=== PATIENT | male | born 1990 | race Caucasian/White ===

== ENCOUNTER 2017-06-03 10:50 | Emergency (ER) | payer OTHER ==
[~2017-06-03] VITALS: Ht 170.2 cm; Wt 71.8 kg
[2017-06-03 10:56] VITALS: TEMP 36.7; Ht 170.2 cm; Wt 71.8 kg
[2017-06-03] MEDS ORDERED: LIDO1CRE TOP (11:36)
[2017-06-03] MEDS ORDERED: ELVI1TAB6 PO (11:36)
--- NOTE | 2017-06-03 11:47 | EMERGENCY ROOM VISIT NOTE ---
History Report prepared by Terence: Osmin Meza Under the Supervision of: Dr. Danial Mcguire M.D. First contact with patient: 11:05 Chief Complaint: ABDOMINAL PAIN Stated Complaint: ABDOMINAL PAIN, RIGHT LOWER QUADRANT, BACK PAIN Nursing Triage Summary: "I'm in a a whole world of hurt". On friday notice had a mass on left testicle. Decided to wait it out a little bit. Friday started havign high fevers and back pain. Right and lower abdoinal pain 0/0 at this time but with pressure pain 10/10. History of Present Illness The patient is a 26 year old white male with a past medical history of a TBI and HIV who presents to the ED with a cc of persistent testicular pain and abdominal pain beginning three days ago worsened with palpation. Positive back pain, fever or 103.1, and testicular mass. Negative urinary pain, vomiting, history of cancer, alcohol use, and tobacco use. He has been very tired recently. Source of History: patient Onset: 3 days ago Position: abdomen, other (testicle) Timing: other (persistent) Modifying Factors (Worsening): other (palpation) Associated Symptoms: + fevers, + back pain, No vomiting Note: Associated symptoms: Testicular mass. Review of Systems See HPI for pertinent positives and negatives. A total of ten systems were reviewed and were otherwise negative. Past Medical & Surgical Medical Problems: (1) HIV (human immunodeficiency virus infection) (2) TBI (traumatic brain injury) Social History Smoking Status: Current Every Day Smoker Marital Status: single Occupation Status: employed Current/Historical Medications Scheduled Qfseahfwurza-Xgqcuicigz-Ilgpdd (Genvoya [phone] mg), 1 TAB PO DAILY Miscellaneous Medications Lidocaine Hcl (Lidocaine), 1 APPLN TOP Allergies Coded Allergies: Zolpidem (Unverified Allergy, Unknown, nosebleeds, 06/03/17) Physical Exam Vital Signs Date Time Temp Pulse Resp B/P (MAP) Pulse Ox O2 Delivery O2 Flow Rate FiO2 06/03/17 15:48 81 19 130/73 98 06/03/17 14:14 98 20 109/77 99 Room Air 06/03/17 12:27 91 06/03/17 12:25 94 16 147/71 100 Room Air 06/03/17 10:56 36.7 101 20 118/59 98 Room Air Physical Exam GENERAL: Awake, alert, well-appearing, NAD HENT: Normocephalic, atraumatic. Poor dentition EYES: Normal conjunctiva. Sclera non-icteric. NECK: Supple. No nuchal rigidity. FROM. RESPIRATORY: CTAB, no rhonchi, wheezing, crackles CARDIAC: RRR, no MRG ABDOMEN: Some suprapubic discomfort. Soft, ND, BS+ : Firm rubbery mass at the base of the left testicle. No scrotal swelling. No penile tenderness. Uncircumcised. MSK: No chest wall TTP, no LE edema NEURO: GCS 15, CN 2-12 intact, moves all 4s on command SKIN: No rash or jaundice noted. Medical Decision & Procedures ER Provider Diagnostic Interpretation: Radiology results as stated below per my review and radiologist interpretation: (TESTICULAR) SCROTUM-CONT HISTORY: Mass L posterior rubbery firm mass COMPARISON: None. FINDINGS: Right testis: Uniform echogenicity. Maximum dimension 5 cm. Normal vascular flow Left testis: Maximum dimension 4.6 cm. Lower pole heterogeneous mass measuring 1.5 x 1.4 cm. Neoplasm must be considered. IMPRESSION: 1. 1.5 cm lower pole left testicular mass. 2. Neoplasm must be excluded. 3. Normal right testis. The above report was generated using voice recognition software. It may contain grammatical, syntax or spelling errors. Electronically signed by: Iglesia Wilde M.D. 06/03/2017 1:08 PM Dictated Date/Time: 06/03/2017 1:05 PM CHEST ONE VIEW PORTABLE HISTORY: Generalized abdominal pain. COMPARISON: None. FINDINGS: The lungs are clear. Cardiac silhouette is normal in size. No pleural effusions. No pneumothorax. Postoperative changes related to the right clavicle. IMPRESSION: No acute process. Electronically signed by: Jose Quiñones M.D. 06/03/2017 12:37 PM Dictated Date/Time: 06/03/2017 12:35 PM ABD/PELVIS IV CONTRAST ONLY CT DOSE: 442.16 mGycm HISTORY: Flank pain ab pain TECHNIQUE: Multiaxial CT images of the abdomen and pelvis were performed following the use of intravenous contrast. A dose lowering technique was utilized adhering to the principles of ALARA. COMPARISON STUDY: None. FINDINGS: The lung bases are clear. The liver, spleen, gallbladder, pancreas, kidneys, and adrenal glands are within normal limits. No bowel wall thickening or obstruction. The pelvic organs are unremarkable. No suspicious lytic or blastic osseous lesions. Several reactive mesenteric nodes. The appendix is identified only in part although there is no significant right lower quadrant inflammatory process. IMPRESSION: No significant abnormality identified within the abdomen or pelvis. Mild mesenteric adenitis. The above report was generated using voice recognition software. It may contain grammatical, syntax or spelling errors. Electronically signed by: Iglesia Wilde M.D. 06/03/2017 2:49 PM Dictated Date/Time: 06/03/2017 2:44 PM Laboratory Results 06/03/17 12:10 Red Blood Count 4.55, Mean Corpuscular Volume 89.9, Mean Corpuscular Hemoglobin 32.5, Mean Corpuscular Hemoglobin Concent 36.2, Mean Platelet Volume 9.0, Neutrophils (%) (Auto) 73.6, Lymphocytes (%) (Auto) 12.1, Monocytes (%) (Auto) 13.1, Eosinophils (%) (Auto) 0.6, Basophils (%) (Auto) 0.3, Neutrophils # (Auto ) 8.24, Lymphocytes # (Auto) 1.36, Monocytes # (Auto) 1.47, Eosinophils # (Auto ) 0.07, Basophils # (Auto) 0.03 06/03/17 12:10 Test 06/03/17 12:10 White Blood Count 11.20 K/uL (4.8-10.8) Red Blood Count 4.55 M/uL (4.7-6.1) Hemoglobin 14.8 g/dL (14.0-18.0) Hematocrit 40.9 % (42-52) Mean Corpuscular Volume 89.9 fL (80-100) Mean Corpuscular Hemoglobin 32.5 pg (25-34) Mean Corpuscular Hemoglobin Concent 36.2 g/dl (32-36) Platelet Count 160 K/uL (130-400) Mean Platelet Volume 9.0 fL (7.4-10.4) Neutrophils (%) (Auto) 73.6 % Lymphocytes (%) (Auto) 12.1 % Monocytes (%) (Auto) 13.1 % Eosinophils (%) (Auto) 0.6 % Basophils (%) (Auto) 0.3 % Neutrophils # (Auto) 8.24 K/uL (1.4-6.5) Lymphocytes # (Auto) 1.36 K/uL (1.2-3.4) Monocytes # (Auto) 1.47 K/uL (0.11-0.59) Eosinophils # (Auto) 0.07 K/uL (0-0.5) Basophils # (Auto) 0.03 K/uL (0-0.2) RDW Standard Deviation 39.3 fL (36.4-46.3) RDW Coefficient of Variation 12.2 % (11.5-14.5) Immature Granulocyte % (Auto) 0.3 % Immature Granulocyte # (Auto) 0.03 K/uL (0.00-0.02) Urine Color DK YELLOW Urine Appearance CLEAR (CLEAR) Urine pH 6.5 (4.5-7.5) Urine Specific [place] 1.036 (1.000-1.030) Urine Protein 1+ (NEG) Urine Glucose (UA) NEG (NEG) Urine Ketones TRACE (NEG) Urine Occult Blood NEG (NEG) Urine Nitrite NEG (NEG) Urine Bilirubin NEG (NEG) Urine Urobilinogen NEG (NEG) Urine Leukocyte Esterase TRACE (NEG) Urine WBC (Auto) 1-5 /hpf (0-5) Urine RBC (Auto) 5-10 /hpf (0-4) Urine Hyaline Casts (Auto) 1-5 /lpf (0-5) Urine Epithelial Cells (Auto) 10-20 /lpf (0-5) Urine Bacteria (Auto) NEG (NEG) Anion Gap 4.0 mmol/L (3-11) Est Creatinine Clear Calc Drug Dose 77.3 ml/min Estimated GFR () 83.7 Estimated GFR (Non- 72.2 BUN/Creatinine Ratio 14.0 (10-20) Calcium Level 9.2 mg/dl (8.5-10.1) Total Bilirubin 0.6 mg/dl (0.2-1) Direct Bilirubin 0.1 mg/dl (0-0.2) Aspartate Amino Transf (AST/SGOT) 14 U/L (15-37) Alanine Aminotransferase (ALT/SGPT) 29 U/L (12-78) Alkaline Phosphatase 84 U/L (45-117) Total Protein 8.1 gm/dl (6.4-8.2) Albumin 3.7 gm/dl (3.4-5.0) Lipase 139 U/L (73-393) Laboratory results reviewed by me Medications Administered Medications (Trade) Dose Ordered Sig/Julio Route Start Time Stop Time Status Last Admin Dose Admin Acetaminophen (Tylenol Tab) 1,000 mg NOW STAT PO 06/03/17 12:05 06/03/17 12:06 DC 06/03/17 12:25 1,000 MG ED Course 1120: The patient was evaluated in room C1. A complete history and physical exam was performed. 1151: I reevaluated the patient, and I updated him on the plan and performed an exam. 1513: I discussed the patient's case with Brandy EVANS - Urology, and she is going to get the patient an appointment tomorrow. 1514: I reevaluated the patient. Discussed results and discharge instructions: he verbalized understanding and agreement. The patient is ready for discharge. Medical Decision Patient was seen and evaluated the bedside. Patient was putting some mild abdominal discomfort as well as a noted testicular mass. Patient states he noticed this yesterday. Patient denies any urinary symptoms. Of note the patient does have a prior history of TBI and HIV. Patient is on antiretrovirals states that his CD4 count is normal and his viral load was undetectable was most recent blood work. Patient's blood work is fairly unremarkable. The patient's urinalysis I do not believe is infected. Patient did have an ultrasound of the scrotum which did show 1.5 cm mass in the left scrotum. Malignancy could not be ruled out. CT of the abdomen pelvis did show some mesenteric adenitis. No other evidence of any other issues within the abdomen or pelvis. I did discuss results with the patient. I did speak with the on-call urologist in order to arrange follow-up. The patient will be seen tomorrow in clinic. Patient was deemed suitable for outpatient follow-up in clinic at this time. Patient was given strict follow-up, discharge, and return precautions. All questions were answered. Patient was deemed suitable for outpatient follow-up at this time. Patient agreed with the plan of care and was safely discharged home. Medication Reconcilliation Current Medication List: was personally reviewed by me Blood Pressure Screening Patient's blood pressure: Normal blood pressure Consults Time Called: 1511 Consulting Physician: Brandy EVANS - Urology Returned Call: 1515 I discussed the patient's case with Brandyadina EVANS - Urology, and she is going to get the patient an appointment tomorrow. Impression Primary Impression: Testicular mass Additional Impressions: Mesenteric adenitis Encounter for smoking cessation counseling Scribe Attestation The scribe's documentation has been prepared under my direction and personally reviewed by me in its entirety. I confirm that the note above accurately reflects all work, treatment, procedures, and medical decision making performed by me. Departure Information Dispostion Home / Self-Care Referrals Art Cortez D.O. (PCP) Brandy Delgado CRNP Forms HOME CARE DOCUMENTATION FORM, IMPORTANT VISIT INFORMATION Patient Instructions ED Adenitis Mesenteric, ED Testicular Pain [facility], [facility], Self Exam Testicular Additional Instructions Please return to the emergency department if you have worsening or recurrent symptoms not amenable to at-home treatment. Please call for a follow-up appointment with her primary care physician. Please take your medications as prescribed. If you have other concerns and/or complaints please feel free to also call your primary care physician's office or return the ED for further evaluation, management, and treatment. You may take 600 mg Ibuprofen every 6 hours as needed for pain with food for no more than 2 consecutive days. You may take tylenol 1000 mg every 6 hours as needed for pain. You may take motrin and tylenol separately or at the same time. Consider using briefs help with support. Please ensure that you keep her follow -up appointment tomorrow with the urologist. Take your medications as prescribed. You have been examined and treated today on an emergency basis only. This is not a substitute for, or an effort to provide, complete comprehensive medical care. It is impossible to recognize and treat all injuries or illnesses in a single emergency department visit. It is therefore important that you follow up closely with [facility], your PCP, and/or your specialist(s). Call as soon as possible for an appointment. Thank you for your time and consideration. I look forward to speaking with you again soon. Please don't hesitate to call us if you have any questions. Problem Qualifiers
[2017-06-03] MEDS ORDERED: ACETAMINOPHEN 500 MG TAB PO STA (12:05)
[2017-06-03 12:23] LABS: BASO % 0.3 %; BASO ABS # 0.03 K/uL (0-0.2); EOS % 0.6 %; EOS ABS # 0.07 K/uL (0-0.5); HEMATOCRIT 40.9 % (42-52); HEMOGLOBIN 14.8 g/dL (14.0-18.0); IG# 0.03 K/uL (0.00-0.02); LYMPH % 12.1 %; LYMPH ABS # 1.36 K/uL (1.2-3.4); MEAN CELL VOLUME 89.9 fL (80-100); MEAN CORPUSCULAR HEMOGLOBIN 32.5 pg (25-34); MEAN CORPUSCULAR HGB CONC 36.2 g/dl (32-36); MONO % 13.1 %; MONO ABS # 1.47 K/uL (0.11-0.59); NEUT % 73.6 %; NEUT ABS # 8.24 K/uL (1.4-6.5); PLATELET COUNT 160 K/uL (130-400); RED CELL DISTRIBUTION WIDTH CV 12.2 % (11.5-14.5); RED CELL DISTRIBUTION WIDTH SD 39.3 fL (36.4-46.3)
--- NOTE | 2017-06-03 12:38 | DIAGNOSTIC IMAGING REPORT ---
CHEST ONE VIEW PORTABLE HISTORY: Generalized abdominal pain. COMPARISON: None. FINDINGS: The lungs are clear. Cardiac silhouette is normal in size. No pleural effusions. No pneumothorax. Postoperative changes related to the right clavicle. IMPRESSION: No acute process. Electronically signed by: Jose Quiñones M.D. 06/03/2017 12:37 PM Dictated Date/Time: 06/03/2017 12:35 PM
[2017-06-03 12:44] LABS: ALBUMIN 3.7 gm/dl (3.4-5.0); CALCIUM 9.2 mg/dl (8.5-10.1); CREATININE 1.33 mg/dl (0.60-1.40)
[2017-06-03 12:47] LABS: TOTAL PROTEIN 8.1 gm/dl (6.4-8.2)
--- NOTE | 2017-06-03 13:09 | DIAGNOSTIC IMAGING REPORT ---
(TESTICULAR) SCROTUM-CONT HISTORY: Mass L posterior rubbery firm mass COMPARISON: None. FINDINGS: Right testis: Uniform echogenicity. Maximum dimension 5 cm. Normal vascular flow Left testis: Maximum dimension 4.6 cm. Lower pole heterogeneous mass measuring 1.5 x 1.4 cm. Neoplasm must be considered. IMPRESSION: 1. 1.5 cm lower pole left testicular mass. 2. Neoplasm must be excluded. 3. Normal right testis. The above report was generated using voice recognition software. It may contain grammatical, syntax or spelling errors. Electronically signed by: Iglesia Wilde M.D. 06/03/2017 1:08 PM Dictated Date/Time: 06/03/2017 1:05 PM
--- NOTE | 2017-06-03 14:51 | DIAGNOSTIC IMAGING REPORT ---
ABD/PELVIS IV CONTRAST ONLY CT DOSE: 442.16 mGycm HISTORY: Flank pain ab pain TECHNIQUE: Multiaxial CT images of the abdomen and pelvis were performed following the use of intravenous contrast. A dose lowering technique was utilized adhering to the principles of ALARA. COMPARISON STUDY: None. FINDINGS: The lung bases are clear. The liver, spleen, gallbladder, pancreas, kidneys, and adrenal glands are within normal limits. No bowel wall thickening or obstruction. The pelvic organs are unremarkable. No suspicious lytic or blastic osseous lesions. Several reactive mesenteric nodes. The appendix is identified only in part although there is no significant right lower quadrant inflammatory process. IMPRESSION: No significant abnormality identified within the abdomen or pelvis. Mild mesenteric adenitis. The above report was generated using voice recognition software. It may contain grammatical, syntax or spelling errors. Electronically signed by: Iglesia Wilde M.D. 06/03/2017 2:49 PM Dictated Date/Time: 06/03/2017 2:44 PM
[2017-06-03 15:48] VITALS: BP 130/73; PULSE 81; O2SAT 98
[2017-06-04] MEDS ORDERED: ACET-1256 PO (15:57)
== END 2017-06-03 15:49 | disposition home or self-care (01) ==
LOC: C.EDB 10:53 → C.EDC 15:49
DX: I88.0 Nonspecific mesenteric lymphadenitis (principal); R22.9 Localized swelling, mass and lump, unspecified; R10.31 Right lower quadrant pain; N50.812 Left testicular pain; B20 Human immunodeficiency virus [HIV] disease; F17.210 Nicotine dependence, cigarettes, uncomplicated; Z87.820 Personal history of traumatic brain injury

== ENCOUNTER → 2017-06-04 | Outpatient (CLI) | payer OTHER ==
[~2017-06-04] MED LIST: ACET-1256 PO; DIPH38TA PO; DOXY100C76 PO; DOXY100T PO; ELVI1TAB6 PO; LIDO1CRE TOP; ONDA4TAB10 SL; ONDA4TAB46 PO; OXYC7.5T65 PO; SULF800T23 PO
== END | disposition home or self-care (01) ==
LOC: C.LABSPEC 17:18
PROVIDERS: ATTEND Urology
DX: N50.9 Disorder of male genital organs, unspecified (principal)

== ENCOUNTER 2017-06-09 18:59 | Emergency (ER) | payer OTHER ==
[~2017-06-09] VITALS: Ht 170.2 cm; Wt 69.4 kg
[~2017-06-09 18:59] MED LIST changes: -CEFAZOLIN 2000MG IV PUSH 15 ML IV SCH; -DIPH38TA PO; -DOXY100C76 PO; -EpHEDrine SULFATE 50MG/5ML SYR ONE; -FENTANYL CITRATE INJ 50 MCG/1 ML 2 ML VIAL ONE; -LACTATED RINGER'S 1000ML 1,000 ML IV SCH; -LIDOCAINE HCL 2% 2 ML VIAL (20MG/ML) ONE; -MIDAZOLAM HCL 1 MG/ML 2ML VIAL ONE; -ONDA4TAB10 SL; -ONDA4TAB46 PO; -ONDANSETRON INJ 2 MG/ML 2 ML VIAL ONE; -PROPOFOL IV EMULSION 10 MG/ML 20 ML VIAL IV ONE; -antibiotic
[2017-06-09 19:17] VITALS: Ht 170.2 cm; Wt 69.4 kg
[2017-06-09] MEDS ORDERED: ONDANSETRON 4MG OD TAB PO ONE (20:00)
[2017-06-09 21:25] LABS: BASO % 0.3 %; BASO ABS # 0.03 K/uL (0-0.2); EOS % 0.2 %; EOS ABS # 0.02 K/uL (0-0.5); HEMATOCRIT 39.4 % (42-52); HEMOGLOBIN 13.8 g/dL (14.0-18.0); IG# 0.06 K/uL (0.00-0.02); LYMPH % 14.7 %; LYMPH ABS # 1.57 K/uL (1.2-3.4); MEAN CELL VOLUME 89.5 fL (80-100); MEAN CORPUSCULAR HEMOGLOBIN 31.4 pg (25-34); MEAN PLATELET VOLUME 8.8 fL (7.4-10.4); MONO % 10.1 %; MONO ABS # 1.08 K/uL (0.11-0.59); NEUT % 74.1 %; PLATELET COUNT 215 K/uL (130-400); RED CELL DISTRIBUTION WIDTH CV 12.3 % (11.5-14.5); WHITE BLOOD COUNT 10.66 K/uL (4.8-10.8)
[2017-06-09 21:33] LABS: INR 1.1 (0.9-1.1)
[2017-06-09 21:44] LABS: ALBUMIN 3.4 gm/dl (3.4-5.0); CALCIUM 8.9 mg/dl (8.5-10.1); CREATININE 1.34 mg/dl (0.60-1.40); POTASSIUM 3.4 mmol/L (3.5-5.1)
[2017-06-09 21:47] LABS: TOTAL PROTEIN 7.8 gm/dl (6.4-8.2)
[2017-06-09] MEDS ORDERED: SODIUM CHLORIDE 0.9% 1000ML 1,000 ML IV STA ×2 (22:17→23:48)
--- NOTE | 2017-06-09 22:47 | DIAGNOSTIC IMAGING REPORT ---
CHEST ONE VIEW PORTABLE CLINICAL HISTORY: feve dyspnea COMPARISON STUDY: 06/03/2017 FINDINGS: The bones soft tissues and hemidiaphragms are normal. The cardiomediastinal silhouette is normal. The lungs are clear. The pulmonary vasculature is normal. Postoperative changes to the right clavicle are again noted. IMPRESSION: Negative chest. No change from the prior study. The above report was generated using voice recognition software. It may contain grammatical, syntax or spelling errors. Electronically signed by: Iglesia Wilde M.D. 06/09/2017 10:46 PM Dictated Date/Time: 06/09/2017 10:45 PM
--- NOTE | 2017-06-09 22:57 | DIAGNOSTIC IMAGING REPORT ---
HEAD WITHOUT CONTRAST (CT) CT DOSE: 537.48 mGy.cm HISTORY: Fever. Headache. HIGH nad fever TECHNIQUE: Multiaxial CT images of the head were performed without the use of intravenous contrast. A dose lowering technique was utilized adhering to the principles of ALARA. Comparison: None. Findings: The paranasal sinuses and mastoid air cells are clear. The calvarium and skull base are intact. The ventricles and sulci are within normal limits. There is no mass, hematoma, midline shift, or acute infarct. Impression: No acute intracranial abnormality. The above report was generated using voice recognition software. It may contain grammatical, syntax or spelling errors. Electronically signed by: Iglesia Wilde M.D. 06/09/2017 10:56 PM Dictated Date/Time: 06/09/2017 10:55 PM
[2017-06-09 23:12] LABS: INFLUENZA B ANTIGEN Neg for Influ B (NEG)
[2017-06-09] MEDS ORDERED: KETOROLAC TROMETHAMINE 30 MG/ML VIAL IV STA (23:57)
[2017-06-09] MEDS ORDERED: PROMETHAZINE HCL INJ 25 MG in SODIUM CHLORIDE 0.9% 50ML 50 ML IV STA (23:57)
[2017-06-10] MEDS ORDERED: XYLOCAINE 1%/SOD BICARB 20 ML VIAL INFIL ONE
[2017-06-10] MEDS ORDERED: ACETAMINOPHEN 500 MG TAB PO STA (00:14)
--- NOTE | 2017-06-10 00:15 | EMERGENCY ROOM VISIT NOTE ---
History Report prepared by Terence: Ayaka Espinosa Under the Supervision of: Dr. Mahad Abdalla D.O. First contact with patient: 22:15 Chief Complaint: VOMITING Stated Complaint: VOMITING,FEVER Nursing Triage Summary: pt was to have surgery today told the dr he has been ill for [address] put him on po antibiotics and cannot keep them down so he was sent here for admission and iv antibiotics. History of Present Illness The patient is a 26 year old male who presents to the Emergency Room with complaints of persistent fever starting 9 days ago. The patient was supposed to have surgery today, but was sent home on antibiotics for an abscess in his tooth. He was unable to keep down the antibiotics so he was sent to the ED for admission and IV antibiotics. His temperature has been around 101-103. He has had chills, shaking, vomiting, and diarrhea. He has a headache. He has ear pain and jaw pain. He is coughing intermittently. He has been sleeping a lot. He denies any urinary symptoms. He has testicular cancer. He has a history of HIV. Source of History: patient, friend Onset: 9 days ago Position: other (global) Symptom Intensity: 101-103 Quality: other (fever) Timing: other (persistent) Associated Symptoms: + chills, + headache, + cough, + vomiting, + diarrhea, No urinary symptoms Review of Systems See HPI for pertinent positives & negatives. A total of 10 systems reviewed and were otherwise negative. Past Medical & Surgical Medical Problems: (1) HIV (human immunodeficiency virus infection) (2) TBI (traumatic brain injury) Family History No pertinent family history stated. Social History Smoking Status: Current Every Day Smoker Marital Status: single Occupation Status: employed Current/Historical Medications Scheduled Doxycycline Hyclate (Doxycycline Hyclate), 1 TAB PO BID Yiwfzxkneibj-Alyrpbnkly-Eynhui (Genvoya [phone] mg), 1 TAB PO QPM Ondasetron Odt (Zofran Odt), 4 MG SL Q6H Sulfamethoxazole-Trimethoprim (Bactrim Ds 800MG/160MG), 1 TAB PO BID Scheduled PRN Lidocaine Hcl (Lidocaine), 1 APPLN TOP UD PRN for UD Oxycodone/Acetaminophen 7.5MG/325MG (Percocet 7.5MG/325MG), 1 TAB PO Q6 PRN for Pain Allergies Coded Allergies: Avocado (Verified Allergy, Severe, ESOPHAGEAL SWELLING, 06/10/17) Unclassified Drugs (Verified Allergy, Severe, PEPPERONI: THROAT ITCHINESS , 06/10/17) Cinnamon (Verified Allergy, Unknown, THROAT ITCHINESS - MILD, 06/10/17) Zolpidem (Unverified Allergy, Unknown, nosebleeds, 06/10/17) Uncoded Allergies: MELON (Allergy, Intermediate, THROAT ITCHINESS, 06/09/17) CAN TOLERATE WATERMELON; ALL OTHER MELONS PT CANNOT TOLERATE Physical Exam Vital Signs Date Time Temp Pulse Resp B/P (MAP) Pulse Ox O2 Delivery O2 Flow Rate FiO2 06/10/17 01:24 37.2 86 18 89/56 100 06/10/17 00:14 83 18 99/61 96 Room Air 06/09/17 22:46 94 18 115/74 98 Room Air 06/09/17 21:07 38.0 97 18 116/68 95 Room Air 06/09/17 19:17 38.5 95 20 120/61 95 Room Air Physical Exam GENERAL: Patient is awake, alert, mildly anxious appearing but overall comfortable. EYES: The conjunctivae are clear. The pupils are round and reactive. EARS, NOSE, MOUTH AND THROAT: The nose is without any evidence of any deformity. Mucous membranes are moist tongue is midline NECK: The neck is nontender and supple. RESPIRATORY: Normal respiratory effort is noted there is no evidence of wheezing rhonchi or rales CARDIOVASCULAR: Regular rate and rhythm noted there no murmurs rubs or gallops normal S1 normal S2 GASTROINTESTINAL: The abdomen is soft. Bowel sounds are present in all quadrants. Abdomen is nontender MUSCULOSKELETAL/EXTREMITIES: There is no evidence of gross deformity full range of motion is noted in the hips and shoulders SKIN: There is no obvious evidence of any rash. There are no petechiae, pallor or cyanosis noted. NEUROLOGIC: Patient is awake alert and oriented x3 strength is symmetric patellar reflexes are 2+ bilaterally Medical Decision & Procedures ER Provider Diagnostic Interpretation: X-ray results as stated below per interpretation by me and the radiologist. Radiology results as stated below per my review and radiologist interpretation: CHEST ONE VIEW PORTABLE CLINICAL HISTORY: feve dyspnea COMPARISON STUDY: 06/03/2017 FINDINGS: The bones soft tissues and hemidiaphragms are normal. The cardiomediastinal silhouette is normal. The lungs are clear. The pulmonary vasculature is normal. Postoperative changes to the right clavicle are again noted. IMPRESSION: Negative chest. No change from the prior study. The above report was generated using voice recognition software. It may contain grammatical, syntax or spelling errors. Electronically signed by: Iglesia Wilde M.D. 06/09/2017 10:46 PM Dictated Date/Time: 06/09/2017 10:45 PM HEAD WITHOUT CONTRAST (CT) CT DOSE: 537.48 mGy.cm HISTORY: Fever. Headache. HIGH nad fever TECHNIQUE: Multiaxial CT images of the head were performed without the use of intravenous contrast. A dose lowering technique was utilized adhering to the principles of ALARA. Comparison: None. Findings: The paranasal sinuses and mastoid air cells are clear. The calvarium and skull base are intact. The ventricles and sulci are within normal limits. There is no mass, hematoma, midline shift, or acute infarct. Impression: No acute intracranial abnormality. The above report was generated using voice recognition software. It may contain grammatical, syntax or spelling errors. Electronically signed by: Iglesia Wilde M.D. 06/09/2017 10:56 PM Dictated Date/Time: 06/09/2017 10:55 PM Laboratory Results 06/09/17 21:10 Red Blood Count 4.40, Mean Corpuscular Volume 89.5, Mean Corpuscular Hemoglobin 31.4, Mean Corpuscular Hemoglobin Concent 35.0, Mean Platelet Volume 8.8, Neutrophils (%) (Auto) 74.1, Lymphocytes (%) (Auto) 14.7, Monocytes (%) (Auto) 10.1, Eosinophils (%) (Auto) 0.2, Basophils (%) (Auto) 0.3, Neutrophils # (Auto ) 7.90, Lymphocytes # (Auto) 1.57, Monocytes # (Auto) 1.08, Eosinophils # (Auto ) 0.02, Basophils # (Auto) 0.03 06/09/17 21:10 Test 06/09/17 00:00 06/09/17 21:10 06/09/17 23:30 06/09/17 23:55 Influenza Type A Antigen Neg for Influ A (NEG) Influenza Type B Antigen Neg for Influ B (NEG) White Blood Count 10.66 K/uL (4.8-10.8) Red Blood Count 4.40 M/uL (4.7-6.1) Hemoglobin 13.8 g/dL (14.0-18.0) Hematocrit 39.4 % (42-52) Mean Corpuscular Volume 89.5 fL (80-100) Mean Corpuscular Hemoglobin 31.4 pg (25-34) Mean Corpuscular Hemoglobin Concent 35.0 g/dl (32-36) Platelet Count 215 K/uL (130-400) Mean Platelet Volume 8.8 fL (7.4-10.4) Neutrophils (%) (Auto) 74.1 % Lymphocytes (%) (Auto) 14.7 % Monocytes (%) (Auto) 10.1 % Eosinophils (%) (Auto) 0.2 % Basophils (%) (Auto) 0.3 % Neutrophils # (Auto) 7.90 K/uL (1.4-6.5) Lymphocytes # (Auto) 1.57 K/uL (1.2-3.4) Monocytes # (Auto) 1.08 K/uL (0.11-0.59) Eosinophils # (Auto) 0.02 K/uL (0-0.5) Basophils # (Auto) 0.03 K/uL (0-0.2) RDW Standard Deviation 40.0 fL (36.4-46.3) RDW Coefficient of Variation 12.3 % (11.5-14.5) Immature Granulocyte % (Auto) 0.6 % Immature Granulocyte # (Auto) 0.06 K/uL (0.00-0.02) Prothrombin Time 11.4 SECONDS (9.0-12.0) Prothromb Time International Ratio 1.1 (0.9-1.1) Anion Gap 7.0 mmol/L (3-11) Est Creatinine Clear Calc Drug Dose 76.8 ml/min Estimated GFR () 83.0 Estimated GFR (Non- 71.6 BUN/Creatinine Ratio 11.3 (10-20) Calcium Level 8.9 mg/dl (8.5-10.1) Total Bilirubin 0.4 mg/dl (0.2-1) Aspartate Amino Transf (AST/SGOT) 18 U/L (15-37) Alanine Aminotransferase (ALT/SGPT) 26 U/L (12-78) Alkaline Phosphatase 73 U/L (45-117) Total Protein 7.8 gm/dl (6.4-8.2) Albumin 3.4 gm/dl (3.4-5.0) Globulin 4.4 gm/dl (2.5-4.0) Albumin/Globulin Ratio 0.8 (0.9-2) Monoscreen NEG (NEG) Urine Color YELLOW Urine Appearance CLEAR (CLEAR) Urine pH 6.5 (4.5-7.5) Urine Specific Patterson 1.021 (1.000-1.030) Urine Protein TRACE (NEG) Urine Glucose (UA) NEG (NEG) Urine Ketones TRACE (NEG) Urine Occult Blood NEG (NEG) Urine Nitrite NEG (NEG) Urine Bilirubin NEG (NEG) Urine Urobilinogen NEG (NEG) Urine Leukocyte Esterase NEG (NEG) Urine WBC (Auto) 1-5 /hpf (0-5) Urine RBC (Auto) 0-4 /hpf (0-4) Urine Hyaline Casts (Auto) 0 /lpf (0-5) Urine Epithelial Cells (Auto) 0-5 /lpf (0-5) Urine Bacteria (Auto) NEG (NEG) CSF Color COLORLESS CSF Appearance CLEAR CSF WBC 1 /uL (0-5) CSF RBC 0 /uL (0) CSF Xanthrochromic NO XANTHOCHROMIA CSF Cell Count Tube # 4 CSF Chemistry Tube # 2 CSF Glucose 55 mg/dl (40-70) CSF Total Protein 29.1 mg/dl (15.0-45.0) Date/Time Source Procedure Growth Status 06/09/17 23:55 Cerebral Spinal Fluid Cryptococcal Antigen - Final Complete Laboratory results per my review. Medications Administered Medications (Trade) Dose Ordered Sig/Julio Route Start Time Stop Time Status Last Admin Dose Admin Ondansetron HCl (Zofran Odt) 4 mg ONE ONCE PO 06/09/17 20:00 06/09/17 20:01 DC 06/09/17 21:12 4 MG Sodium Chloride 1,000 ml @ 999 mls/hr Q1H1M STAT IV 06/09/17 22:17 06/09/17 23:17 DC 06/09/17 23:03 999 MLS/HR Sodium Chloride 1,000 ml @ 999 mls/hr Q1H1M STAT IV 06/09/17 23:48 06/10/17 00:48 DC 06/10/17 00:04 999 MLS/HR Ketorolac Tromethamine (Toradol Inj) 30 mg NOW STAT IV 06/09/17 23:57 06/10/17 00:00 DC 06/10/17 00:04 30 MG Promethazine HCl 25 mg/Sodium Chloride 51 ml @ 204 mls/hr NOW STAT IV 06/09/17 23:57 06/10/17 00:11 DC 06/10/17 00:11 204 MLS/HR Acetaminophen (Tylenol Tab) 1,000 mg NOW STAT PO 06/10/17 00:14 06/10/17 00:15 DC 06/10/17 00:28 1,000 MG Ondansetron HCl (ZOFRAN ODT 4MG Home Pack) 1 homepack UD ONCE PO 06/10/17 01:15 06/10/17 01:16 DC 06/10/17 01:22 1 HOMEPACK Procedure Lumbar Puncture Indication: fever, headache. Verbal consent was obtained after the risks and benefits were explained, including but not limited to headache, bleeding/clotting, scarring, infection, pain, and bone/joint/nerve damage. At this time, the risks of the procedure are less than the risks of NOT performing the procedure. A time out was taken and the correct patient and site identified. The patient was placed in the seated position and the back was prepped with betadine and draped in the standard fashion. The L3 intervertebral space was identified, anesthetized locally with 1 % lidocaine without epinephrine, and the spinal needle was inserted through the skin with the bevel parallel to the dural fibers. The needle was carefully advanced into the lumbar cistern and 4 tubes of clear CSF was obtained. The stylet was replaced and the needle was removed. A bandaid was placed and the patient was placed in the supine position. The patient tolerated the procedure well and there were no complications. ED Course 1999: Zofran Odt 4 mg PO. 6: The patient was evaluated in room C8. A complete history and physical examination were performed. 2217: NSS 1000 ml @ 999 mls/hr IV. 2340: I reevaluated the patient. He is not feeling better. I updated him on the results. 2348: NSS 1000 ml @ 999 mls/hr IV. 2350: Lumbar puncture was performed according to the procedure note above. 2357: Promethazine HCl 25 mg/Sodium Chloride 51 ml @ 204 mls/hr IV, Toradol Inj 30 mg IV. 0014: Acetaminophen 1000 mg PO. 0102: Upon reevaluation, the patient is resting comfortably. I discussed the results and treatment plan with him. He verbalized agreement of the treatment plan. He was discharged home. 0115: Ondansetron HCl 1 homepack PO. Medical Decision Prior records/ancillary studies reviewed. Triage Nursing notes reviewed. Additional history obtained from friend. The patient's history was concerning for fever. Differential diagnosis: Etiologies such as viral syndrome, otitis, pharyngitis, pneumonia, influenza, meningitis, urinary tract infection, sepsis, bacteremia, as well as others were entertained. The patient is a 26-year-old male who presented to the emergency department for evaluation of fever. The patient was recently diagnosed with a testicular mass. He was scheduled for surgery but was unable to have the surgery because of the fever. He also complains of dental pain and is being clinically treated with an antibiotic for a dental infection although on physical exam I do not see a definite source for this fever. There is no gumline swelling or erythema. The patient complained of severe headache. Given his past medical history further studies were obtained such as CT of the head as well as laboratory and radiographic studies. No definite source for the patient's fever could be found. For this reason a lumbar puncture was obtained. This did not reveal signs of meningitis or encephalitis. The patient was treated with IV fluids and IV antiemetics. On subsequent reevaluation he was feeling much better. He was encouraged to continue all medications as prescribed especially the antibiotics he was placed on. He was also encouraged to continue using Motrin and Tylenol for pain and fever. I also recommended that he follow-up with his primary care physician today for further evaluation but return to the emergency department immediately if symptoms change worsen or the need arises. Medication Reconcilliation Current Medication List: was personally reviewed by me Blood Pressure Screening Patient's blood pressure: Normal blood pressure Blood pressure disposition: Did not require urgent referral Impression Primary Impression: Nausea Additional Impressions: Vomiting Fever Headache Scribe Attestation The scribe's documentation has been prepared under my direction and personally reviewed by me in its entirety. I confirm that the note above accurately reflects all work, treatment, procedures, and medical decision making performed by me. Departure Information Dispostion Home / Self-Care Prescriptions Ondasetron Odt (ZOFRAN ODT) 4 Mg Tab 4 MG SL Q6H for Nausea, #15 TAB Prov: Mahad Abdalla, 06/10/17 Referrals Art Cortez D.O. (PCP) Forms HOME CARE DOCUMENTATION FORM, IMPORTANT VISIT INFORMATION Patient Instructions ED Fever Control, ED Nausea Vomiting, [facility] Additional Instructions Continue all medications as prescribed. Drink plenty of clear liquids including Gatorade and Pedialyte. Follow-up with your family doctor tomorrow for reevaluation. Return to the emergency department immediately if symptoms change worsen or the need arises. Problem Qualifiers Additional Impressions: Vomiting Vomiting type: unspecified Vomiting Intractability: non-intractable Nausea presence: with nausea Qualified Codes: R11.2 - Nausea with vomiting, unspecified Fever Fever type: unspecified Qualified Codes: R50.9 - Fever, unspecified Headache Headache type: unspecified Headache chronicity pattern: acute headache Intractability: not intractable Qualified Codes: R51 - Headache
[2017-06-10 00:27] LABS: CSF GLUCOSE 55 mg/dl (40-70); CSF TOTAL PROTEIN 29.1 mg/dl (15.0-45.0)
[2017-06-10] MEDS ORDERED: ONDA4TAB10 SL (01:07)
[2017-06-10] MEDS ORDERED: ONDANSETRON HOME PACK 4MG OD TAB PO ONE (01:15)
[2017-06-10 01:24] VITALS: BP 89/56; PULSE 86; TEMP 37.2; O2SAT 100
[2017-06-12] MEDS ORDERED: ONDA4TAB46 PO (14:54)
[2017-06-12] MEDS ORDERED: OXYC7.5T65 PO (14:54)
[2017-06-12] MEDS ORDERED: DOXY100C76 PO (14:54)
[2017-06-12] MEDS ORDERED: SULF800T23 PO (14:54)
[2017-06-12] MEDS ORDERED: DIPH38TA PO (14:57)
== END 2017-06-10 01:25 | disposition home or self-care (01) ==
LOC: C.EDB 19:00 → C.EDC 06-10 01:25
DX: R11.2 Nausea with vomiting, unspecified (principal); F50.9 Eating disorder, unspecified; R51 Headache; B20 Human immunodeficiency virus [HIV] disease; F17.200 Nicotine dependence, unspecified, uncomplicated; Z91.018 Allergy to other foods; Z88.8 Allergy status to other drugs, medicaments and biological substances

== ENCOUNTER → 2017-06-09 | Day surgery (SDC) | payer OTHER ==
[2017-06-04 15:59] VITALS: BMI 25.0
[~2017-06-09] VITALS: Ht 170.2 cm; Wt 73.2 kg
[~2017-06-09] MED LIST changes: +CEFAZOLIN 2000MG IV PUSH 15 ML IV SCH; +EpHEDrine SULFATE 50MG/5ML SYR ONE; +FENTANYL CITRATE INJ 50 MCG/1 ML 2 ML VIAL ONE; +LACTATED RINGER'S 1000ML 1,000 ML IV SCH; +LIDOCAINE HCL 2% 2 ML VIAL (20MG/ML) ONE; +MIDAZOLAM HCL 1 MG/ML 2ML VIAL ONE; +ONDANSETRON INJ 2 MG/ML 2 ML VIAL ONE; +PROPOFOL IV EMULSION 10 MG/ML 20 ML VIAL IV ONE; +antibiotic
[2017-06-09 12:57] VITALS: BP 119/65; PULSE 87; TEMP 37.7; O2SAT 96; Ht 170.2 cm; Wt 73.2 kg
--- NOTE | 2017-06-09 12:57 | History & Physical Bridge Note ---
H&P Re-Evaluation Bridge Note: I have examined the patient, reviewed the History & Physical and in the interval since the performance of the History & Physical I have noted the following changes of clinical significance: No changes noted
--- NOTE | 2017-06-09 13:01 | Discharge Instructions ---
Discharge Instructions Date of Service Jun 09, 2017. Admission Reason for Admission: Left Testicular Mass Discharge Discharge Diagnosis / Problem: Testicular mass Discharge Goals Goal(s): Decrease discomfort, Improve function Activity Recommendations Activity Limitations: resume your previous activity Lifting Limitations: until after follow-up appointment Exercise/Sports Limitations: gradually increase as tolerated, until after follow-up appointment Shower/Bathe: tomorrow . Instructions / Follow-Up Instructions / Follow-Up Avoid heavy lifting or overactivity. Call if any issues. Monitor for redness or swelling. Call if any fevers or other issues. Okay to shower tomorrow. No hot tubs or soaking. No swimming. Okay to wash 2-3 x daily with warm soapy water. Wear scrotal support as needed. Okay to elevate scrotum while flat. Okay to use ice 20 mins on and 20 mins off as needed. Current Hospital Diet Patient's current hospital diet: Discharge Diet Recommended Diet: Regular Diet Procedures Procedures Performed: Left Inguinal Orchiectomy Pending Studies Studies pending at discharge: no Medical Emergencies . Who to Call and When: Medical Emergencies: If at any time you feel your situation is an emergency, please call 911 immediately. . Non-Emergent Contact Non-Emergency issues call your: Primary Care Provider, Urologist Call Non-Emergent contact if: you have a fever, temperature is above 101, temperature is above 101.5, your pain is not controlled, your pain is worsening , your pain is unusual for you, wound has increased drainage, wound has increased redness, wound has increased pain . . "Provider Documentation" section prepared by Don Carrillo,. . VTE Core Measure Inpt VTE Proph given/why not?: SCD's
--- NOTE | 2017-06-09 14:34 | Anesthesiology Progress Note ---
Anesthesia Progress Note Date of Service Jun 09, 2017. Progress Notes The patient was scheduled for an orchiectomy with Dr. Carrillo. He has had a fever for the past two weeks and has been sleeping 20 hours per day. He has been complaining of a sore mouth with specific concern for an abscess over an upper R tooth. He has been unable to eat anything and vomited last night at 0300. The patient has a PMH of HIV and his WBC count was elevated from last week. A discussion was held with Dr. Carrillo, the patient, and his family and Dr. Carrillo made the decision to delay the case due to concerns that the patient could develop sepsis from the abscessed tooth. Dr. Carrillo will start the patient on antibiotics and contact the patient's physician to set up treatment for his tooth.
== END | disposition home or self-care (01) ==
LOC: C.ACU 12:22
PROVIDERS: ATTEND Urology
DX: N50.9 Disorder of male genital organs, unspecified (principal); Z53.09 Procedure and treatment not carried out because of other contraindication

== ENCOUNTER → 2017-06-17 | Day surgery (SDC) | payer OTHER ==
[2017-06-12 15:09] VITALS: Ht 170.2 cm; Wt 73.0 kg
[~2017-06-17] VITALS: Ht 170.2 cm; Wt 73.0 kg
[2017-06-17] VITALS (9 sets, daily range): BP systolic 112–147; BP diastolic 63–83; PULSE 55–78; TEMP 36.6–36.9; O2SAT 97–100
[~2017-06-17] MED LIST changes: -ACET-1256 PO; +ATROPINE SULFATE 0.1 MG/ML 5ML SYR IV PRN; +BUPIVACAINE 0.5 % 5 MG/1 ML MPF 30ML VIAL ONE; +CEFAZOLIN 2000MG IV PUSH 15 ML IV SCH; +DEXAMETHASONE SOD INJ 4 MG/ML VIAL ONE; +DIPH38TA PO; +DOXY100C76 PO; -DOXY100T PO; +EpHEDrine SULFATE INJ 50 MG/ML AMP IV PRN; +FENTANYL CITRATE INJ 50 MCG/1 ML 2 ML VIAL ONE; +HYDROmorphone INJ 1 MG/ML SYR IV PRN; +LABETALOL HCL IV 5 MG/ML 20ML IV PRN; +LACTATED RINGER'S 1000ML 1,000 ML IV SCH; +LIDOCAINE HCL 1% 20 ML VIAL ONE; +LIDOCAINE HCL 2% 2 ML VIAL (20MG/ML) ONE; +MEPERIDINE HCL 25 MG/ML CARP IV PRN; +MIDAZOLAM HCL 1 MG/ML 2ML VIAL ONE; +NURSING VERBAL MED ORDER ONE; +ONDA4TAB46 PO; +ONDANSETRON INJ 2 MG/ML 2 ML VIAL IV PRN; +ONDANSETRON INJ 2 MG/ML 2 ML VIAL ONE; +OXYCODONE/ACETAMINOPHEN 5-325 TAB ONE; +OXYCODONE/ACETAMINOPHEN 7.5-325 TAB PO PRN; +PROPOFOL IV EMULSION 10 MG/ML 20 ML VIAL IV ONE; +antibiotic
--- NOTE | 2017-06-17 08:59 | History & Physical Bridge Note ---
H&P Re-Evaluation Bridge Note: I have examined the patient, reviewed the History & Physical and in the interval since the performance of the History & Physical I have noted the following changes of clinical significance: No changes noted Left Radical Orchiectomy Inguinal
--- NOTE | 2017-06-17 09:18 | Discharge Instructions ---
Discharge Instructions Date of Service Jun 17, 2017. Admission Reason for Admission: Left Testicular Mass Discharge Discharge Diagnosis / Problem: Left Testicular mass Discharge Goals Goal(s): Decrease discomfort, Improve function Activity Recommendations Activity Limitations: per Instructions/Follow-up section Lifting Limitations: gradually increase as tolerated, until after follow-up appointment Exercise/Sports Limitations: gradually increase as tolerated, until after follow-up appointment May Resume Sexual Activity: after follow-up appointment Shower/Bathe: tomorrow . Instructions / Follow-Up Instructions / Follow-Up Okay to use ice 20 mins on and 20 mins off. Okay to shower tomorrow. okay to wash 2-3 x daily over next few days. No hot tubs or baths. No soaking. Keep scrotum elevated. Avoid heavy lifting or overactivity. Call if any fevers or other issues. Monitor for issues. Current Hospital Diet Patient's current hospital diet: Discharge Diet Recommended Diet: Regular Diet Procedures Procedures Performed: Left Radical Orchiectomy Pending Studies Studies pending at discharge: no Medical Emergencies . Who to Call and When: Medical Emergencies: If at any time you feel your situation is an emergency, please call 911 immediately. . Non-Emergent Contact Non-Emergency issues call your: Primary Care Provider, Urologist, Specialist Call Non-Emergent contact if: you have a fever, temperature is above 100.5, temperature is above 101, temperature is above 101.5, your pain is not controlled, your pain is worsening, your pain is unusual for you, wound has increased drainage, wound has increased redness, wound has increased pain . . "Provider Documentation" section prepared by Don Carrillo,. . VTE Core Measure Inpt VTE Proph given/why not?: SCD's
--- NOTE | 2017-06-17 10:41 | [facility] Operative Report ---
Operative Report Operative Date Jun 17, 2017. Pre-Operative Diagnosis Left Testicular Mass Post-Operative Diagnosis Same Procedure(s) Performed Left Inguinal Radical Orchiectomy Surgeon Gerardo Estimated Blood Loss Minimal Findings Left mass on lower pole of testicle. Specimens Left Radical Testicle and Cord Drains None Anesthesia Type General Complication(s) none Disposition Recovery Room / PACU Indications Left testicular mass. Patient agreeable after having discussed risks and benefits. Description of Procedure Patient was consented and brought back to the operating room. Patient was placed under anesthesia in the supine position. Patient was prepped and draped in the regular sterile fashion. A time out was completed. With the time out completed, the left groin was marked. Local anesthetic was placed under the skin. An incision was made in the left inguinal region. The subcutaneous tissues were dissected with electro-bovie cautery. All bleeding was controlled. The inguinal ring and canal were exposed. The canal was opened. Care was taken to identify and isolate the surrounding tissues and landmarks. A drain was used to isolate the cord and assist with dissection. The cord was dissected up to the internal ring. A Yuliana clamp was used across the cord for high ligation. A second Yuliana was placed slightly distal. The testicle was delivered into the incision and attachments were released. With the testicle free, the cord cut with a heavy scissor between the yuliana clamps. The testicle was sent for pathologic analysis. The cord stump was suture ligated with a 2-0 silk suture. A second ligation was completed. Local anesthetic was placed into the cord stump for a cord block. The area was examined and all bleeding controlled. Sterile water was used to flush the wound. The canal fascia was reapproximated with a running vicryl suture. The subcutaneous tissues were also closed with a running vicryl. The Skin was closed with a running monocryl suture. The area was cleaned and glue placed on the wound. The patient was bandaged and fluffs placed for scrotal support. The patient was cleaned, aroused from anesthesia, and transferred to the pacu in stable condition having tolerated the procedure well with no complications. I was present and participated in all aspects of the procedure. I attest to the content of the Intraoperative Record and any orders documented therein. Any exceptions are noted below.
[2017-06-17] MEDS: FENTANYL CITRATE INJ 50 MCG/1 ML 2 ML VIAL IV PRN ×2 (11:15→11:21)
--- NOTE | 2017-06-17 12:13 | Anesthesiology Progress Note ---
Anesthesia Post Op Note Date & Time Jun 17, 2017 at 12:13 Vital Signs Pain Intensity: 0 Vital Signs Past 12 Hours Date Time Temp Pulse Resp B/P (MAP) Pulse Ox O2 Delivery O2 Flow Rate FiO2 06/17/17 11:38 51 14 06/17/17 11:38 53 14 99 06/17/17 11:36 126/74 06/17/17 11:33 67 14 06/17/17 11:33 68 14 100 06/17/17 11:32 66 13 06/17/17 11:32 64 13 100 06/17/17 11:31 138/95 06/17/17 11:27 53 10 06/17/17 11:27 36.7 68 16 138/95 (105) 2 Room Air 06/17/17 11:27 55 10 98 06/17/17 11:26 125/78 06/17/17 11:22 57 14 98 06/17/17 11:22 59 14 06/17/17 11:21 131/86 06/17/17 11:17 53 13 06/17/17 11:17 52 13 98 06/17/17 11:16 53 13 123/78 99 06/17/17 11:16 52 13 06/17/17 11:11 64 17 133/93 100 06/17/17 11:11 64 17 06/17/17 11:06 56 16 06/17/17 11:06 58 16 134/94 100 06/17/17 11:01 60 12 06/17/17 11:01 60 12 136/92 100 06/17/17 10:56 52 13 06/17/17 10:56 52 13 117/63 98 06/17/17 10:52 123/61 06/17/17 10:51 36.4 55 14 123/61 (65) 98 Oxymask 10 06/17/17 10:51 52 13 98 06/17/17 10:51 52 13 06/17/17 07:52 55 18 112/63 (79) 97 Room Air Notes Mental Status: alert / awake / arousable, participated in evaluation Pt Amnestic to Procedure: Yes Nausea / Vomiting: adequately controlled Pain: adequately controlled Airway Patency, RR, SpO2: stable & adequate BP & HR: stable & adequate Hydration State: stable & adequate Anesthetic Complications: no major complications apparent
[2017-06-17 12:53] LABS: HEMATOCRIT 42.3 % (42-52); HEMOGLOBIN 14.5 g/dL (14.0-18.0); MEAN CORPUSCULAR HEMOGLOBIN 31.5 pg (25-34); MEAN PLATELET VOLUME 8.9 fL (7.4-10.4); NUCLEATED RED BLOOD CELL ABS 0.02 K/uL (0-0); PLATELET COUNT 301 K/uL (130-400); RED CELL DISTRIBUTION WIDTH CV 12.7 % (11.5-14.5); RED CELL DISTRIBUTION WIDTH SD 42.5 fL (36.4-46.3); WHITE BLOOD COUNT 11.71 K/uL (4.8-10.8)
[2017-06-17 12:55] LABS: MEAN CORPUSCULAR HGB CONC 34.3 g/dl (32-36)
--- NOTE | 2017-06-17 12:57 | DIAGNOSTIC IMAGING REPORT ---
HEAD WITHOUT CONTRAST (CT) CLINICAL HISTORY: 26 years-old Male with slow to respond, new post op. Acutely altered mental status TECHNIQUE: Multiple axial CT images of the head were obtained without contrast. A dose lowering technique was utilized adhering to the principles of ALARA. CT DOSE: 614.27 mGy.cm COMPARISON: Head CT 06/09/2017. FINDINGS: No acute intracranial hemorrhage, midline shift, intracranial mass, hydrocephalus, territorial ischemia or abnormal extra-axial collection. The calvarium is intact. The paranasal sinuses, mastoid air cells, and middle ear cavities are clear. Mild rightward bowing and spurring of the nasal septum. Orbits are symmetric. IMPRESSION: No acute intracranial abnormality. The above report was generated using voice recognition software. It may contain grammatical, syntax or spelling errors. Electronically signed by: Fidencio Irving M.D. 06/17/2017 12:56 PM Dictated Date/Time: 06/17/2017 12:53 PM
--- NOTE | 2017-06-17 12:58 | DIAGNOSTIC IMAGING REPORT ---
CHEST ONE VIEW PORTABLE CLINICAL HISTORY: post op COMPARISON STUDY: 06/09/2017 FINDINGS: The cardiac and mediastinal contours are normal. There is no evidence of focal pulmonary consolidation. There is no evidence of failure. No pleural effusions are visualized.[ There are postsurgical changes involving the right clavicle. There are minimal left basilar atelectatic changes. IMPRESSION: Minimal left basilar atelectasis Electronically signed by: Vinicius Waller M.D. 06/17/2017 12:57 PM Dictated Date/Time: 06/17/2017 12:56 PM
[2017-06-17 13:01] LABS: PTT PATIENT 26.6 SECONDS (21.0-31.0)
--- NOTE | 2017-06-17 13:04 | Progress Note ---
Progress Note Date of Service Jun 17, 2017. (Gabbi Villaseñor MD) Progress Note Code snehal called at approx 1220. Patient is s/p orchectomy and was alert and oriented on the phone with his grandmother. Patient suddenly became very confused and became somnolent and code snehal was called. The patient was assessed, no hypoxia, pulse was strong and regular, no tachypnea. When calling his name he would move and look and faintly squeeze hand when asked. Mumbled when trying to say words. Lungs clear, no murmurs, pupils were fixed but reactive, equal pupils CBC, INR, PT, PTT, CMP ordered EKG unremarkable. CXR and CT head ordered- no acute findings - Case discussed with hospitalist (Gabbi Villaseñor MD) The above assessment and recommendations were completed on behalf of the third- year resident as part of the rapid response team. I did not evaluate the patient but reviewed the case with the resident. Care was transferred to Dr. Patricia. Please see his documentation for record of patient care. (Carlo Cespedes D.O.)
[2017-06-17 13:17] LABS: ALBUMIN 3.6 gm/dl (3.4-5.0); CALCIUM 9.1 mg/dl (8.5-10.1); CREATININE 1.1 mg/dl (0.60-1.40); POTASSIUM 4.3 mmol/L (3.5-5.1)
[2017-06-17 13:20] LABS: TOTAL PROTEIN 7.8 gm/dl (6.4-8.2)
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
== END | disposition home or self-care (01) ==
LOC: C.ACU 07:22
PROVIDERS: ATTEND Urology
DX: C62.92 Malignant neoplasm of left testis, unspecified whether descended or undescended (principal); F17.200 Nicotine dependence, unspecified, uncomplicated; Z21 Asymptomatic human immunodeficiency virus [HIV] infection status; Z86.711 Personal history of pulmonary embolism; F90.9 Attention-deficit hyperactivity disorder, unspecified type; Z88.8 Allergy status to other drugs, medicaments and biological substances; Z91.018 Allergy to other foods; Z87.820 Personal history of traumatic brain injury